=== PATIENT | male | born 1965 | race Caucasian/White ===

== ENCOUNTER 2019-04-12 18:44 | Emergency (ER) | payer OTHER, SELFPAY ==
[~2019-04-12] VITALS: Ht 180.3 cm; Wt 81.6 kg
--- NOTE | 2019-04-12 19:41 | NUR ---
PT WALKED BACK FROM LOBBY TO ROOM AT THIS TIME.
[2019-04-12] MEDS ORDERED: BENZOCAINE 20% SPRAY 0.5ML ONE (20:50)
[2019-04-12] MEDS ORDERED: BENZOCAINE 20% SPRAY 0.5ML TP ONE (21:00)
[2019-04-12] MEDS ORDERED: AMOXICILLIN 500 MG CAPSULE ONE (21:13)
[2019-04-12] MEDS ORDERED: AMOXICILLIN 500 MG CAPSULE PO ONE (21:30)
[2019-04-12 21:40] VITALS: BP 138/98
== END 2019-04-12 21:42 | disposition home or self-care (01) ==
LOC: ED 20:17
DX: K04.7 Periapical abscess without sinus (principal)
CPT/HCPCS: 41800; 99283